=== PATIENT | female | born 1950 | race Caucasian/White ===

== ENCOUNTER 2017-08-26 10:34 | Emergency (ER) | payer OTHER ==
[2017-08-26] MEDS ORDERED: NS 0.9% 1000 ML* 1,000 ML IV ONE (10:59)
[2017-08-26] MEDS ORDERED: Morphine VIAL* 4 MG/ML VIAL (1 ml vial) IV ONE (11:01)
[2017-08-26] MEDS ORDERED: Metoclopramide IV* 5 MG/ML 2 ML VIAL IV ONE (11:02)
[2017-08-26 11:17] LABS: ABS Basophils 0.1 10^3/ul (0-0.2); ABS Eosinophils 0.1 10^3/ul (0-0.6); ABS Lymphocytes 1.7 10^3/ul (1.0-4.8); ABS Monocytes 0.6 10^3/ul (0-0.8); ABS Neutrophils 4.8 10^3/ul (1.5-7.7); ABS Nucleated RBC 0 10^3/ul; Eosinophil % 1.2 % (0-6); Hematocrit 41 % (35-47); Lymphocyte % 23.1 % (25-47); Mean Corpuscular HGB Conc 34 g/dl (31-36); Mean Corpuscular Hemoglobin 31 pg (27-31); Mean Corpuscular Volume 91 fL (80-97); Mean Platelet Volume 7.4 um3 (7.4-10.4); Nucleated Red Blood Cells % 0.1; Platelet Count 258 10^3/ul (150-450); Red Blood Count 4.48 10^6/ul (4.00-5.40); Red Cell Distribution Width 13 % (10.5-15); White Blood Count 7.2 10^3/ul (3.5-10.8)
[2017-08-26 11:39] LABS: EGFR Non-African American 64.1 (>60)
[2017-08-26] MEDS ORDERED: Iohexol 300* (CONTRAST) 10 ML SDV IV ONE (11:50)
[2017-08-26 12:17] LABS: Urine Appearance Clear; Urine Blood 1+ (Negative); Urine Color Yellow; Urine Ketones Negative (Negative); Urine Protein Negative (Negative); Urine Urobilinogen Negative (Negative)
--- NOTE | 2017-08-26 14:01 | RAD ---
INDICATION: Right lower quadrant pain COMPARISON: None TECHNIQUE: Axial source images were obtained from the hemidiaphragms to the symphysis pubis following administration of oral and intravenous contrast. 85 mL Omnipaque 300 was utilized. Coronal and sagittal reconstructed images were acquired. Lung bases: The lung bases are clear. Liver: The liver is normal in size. There are no masses. There is no ductal dilatation. Gallbladder: There are no calcified gallstones. There is no evidence of wall thickening or pericholecystic fluid. Spleen: The spleen is normal in size. There are no masses. Pancreas: There is no focal pancreatic mass or ductal dilatation. Adrenal glands: There is no evidence of adrenal mass. Kidneys: The kidneys are normal in size and position. There are prompt nephrograms and there is prompt excretion bilaterally. There is an 8 mm cyst in the mid-upper pole the right kidney. There is a 4 mm fat density lesion in the inferior right renal pole which may resent tiny angiomyolipoma There is no evidence of nephrolithiasis. Adenopathy: There is no evidence of adenopathy by size criteria. Fluid collections: There are no free or localized fluid collections. Vessels:There are no significant atherosclerotic changes involving the aorta. There is no focal aneurysm. The iliac vessels are normal in caliber. The IVC appears normal. GI tract: There are no acute CT bowel findings. There is no obstruction. The stomach and small bowel appear normal. There is stool in the right colon. The GI tract is otherwise unremarkable. The cecum, ileocecal valve, and terminal ileum appear normal. The appendix is visualized and appear normal. Pelvic organs: There is a probable small uterine fibroid measuring approximately 9 mm. There is no adnexal mass. Bladder: There are no bladder masses. Abdominal and pelvic soft tissues: The extraperitoneal abdominal and pelvic soft tissues appear normal.. Osseous structures: There are no acute osseous findings. Other: None IMPRESSION: NO ACUTE CT FINDINGS. NO WORRISOME MASS OR INFLAMMATORY CHANGES. STOOL RIGHT COLON. NORMAL APPENDIX.
[2017-08-26] MEDS ORDERED: Magnesium CITRATE* 300 ML BTL PO ONE (14:21)
[2017-08-26] MEDS ORDERED: Ketorolac INJ* 30 MG/ML 1 ML VIAL IV PUSH ONE (14:30)
[2017-08-26 15:14] VITALS: BP 106/79
--- NOTE | 2017-08-26 19:41 | ED ---
Megan Messina Jade, scribed for Ayana Jensen MD on 08/26/17 at 1106 . Abdominal Pain/Female - HPI Summary HPI Summary: Pt is a 66 y/o female who presents to the ED c/o abdominal pain. She states the pain started 2 days ago but worsened last night, and is located over her lower abdomen. Pain is rated a 6/10 in severity, and is made worse by touch or lying on her left side. Pt is otherwise healthy. She also c/o decreased appetite, more irregular and less loose BMs, and being aware of her urination. Pt denies any fever, chills, dysuria, or N/V/D. No PMHx HLD, DM, HTN, or appendicitis. She denies any PSHx abdominal surgeries. She has a FHx of colon cancer, and gets regular colonoscopies. Pt denies any allergies, smoking, or drug use. She occasionally drinks alcohol. - History of Current Complaint Chief Complaint: EDAbdPain Stated Complaint: ABD PAIN Time Seen by Provider: 08/26/17 10:45 Hx Obtained From: Patient Onset/Duration: Gradual Onset, Lasting Days - 2, Still Present Timing: Constant Severity Currently: Moderate Pain Intensity: 6 Pain Scale Used: 0-10 Numeric Location: Discrete At: RLQ, Discrete At: LLQ Radiates: No Aggravating Factor(s): Other: - Touch, laying on left side Alleviating Factor(s): Nothing Associated Signs and Symptoms: Positive: Decreased Appetite. Negative: Fever, Urinary Symptoms, Nausea, Vomiting, Diarrhea Allergies/Adverse Reactions: Allergies Allergy/AdvReac Type Severity Reaction Status Date / Time No Known Allergies Allergy Verified 08/26/17 10:42 PMH/Surg Hx/FS Hx/Imm Hx Endocrine/Hematology History: Denies: Hx Diabetes Cardiovascular History: Denies: Hx Hypercholesterolemia, Hx Hypertension GI History: Denies: Other GI Disorders - Appendicitis - Cancer History Hx Chemotherapy: No Hx Radiation Therapy: No Infectious Disease History: No Infectious Disease History: Denies: Traveled Outside the [place] in Last 30 Days - Family History Known Family History: Positive: Other - Colon cancer - Social History Alcohol Use: Occasionally Hx Substance Use: No Substance Use Type: Reports: None Hx Tobacco Use: No Smoking Status (MU): Never Smoked Tobacco Review of Systems Negative: Fever, Chills Positive: Abdominal Pain - Lower, Other - "irregular" BM, decreased appetite. Negative: Vomiting, Diarrhea, Nausea Negative: dysuria All Other Systems Reviewed And Are Negative: Yes Physical Exam - Summary Physical Exam Summary: GENERAL: Patient is a well-developed and nourished F who is lying comfortable in the stretcher. Patient is not in any acute respiratory distress. HEAD AND FACE: Normocephalic. EYES: PERRLA, EOMI x 2. EARS: Hearing grossly intact. MOUTH: Oropharynx within normal limits. NECK: Supple, trachea is midline, no adenopathy, no JVD, no carotid bruit. CHEST: Symmetric, no tenderness at palpation LUNGS: Clear to auscultation bilaterally. No wheezing or crackles. CVS: Regular rate and rhythm, S1 and S2 present, no murmurs or gallops appreciated. ABDOMEN: Soft. Bowel sounds are normal. No abdominal abnormal pulsations. Tender to palpation in RLQ. Rovsings sign positive. EXTREMITIES: Full ROM in all major joints, no edema, no cyanosis or clubbing. NEURO: Alert and oriented x 3. No acute neurological deficits. Speech is normal and follows commands. SKIN: Dry and warm. No rash identified. Triage Information Reviewed: Yes Vital Signs On Initial Exam: Initial Vitals Temp Pulse Resp BP Pulse Ox 96.8 F 82 16 180/94 95 08/26/17 10:38 08/26/17 10:38 08/26/17 10:38 08/26/17 10:38 08/26/17 10:38 Vital Signs Reviewed: Yes Diagnostics - Vital Signs Vital Signs Temp Pulse Resp BP Pulse Ox 08/26/17 10:38 96.8 F 82 16 180/94 95 - Laboratory Result Diagrams: 08/26/17 11:06 08/26/17 11:06 Lab Statement: Any lab studies that have been ordered have been reviewed, and results considered in the medical decision making process. - CT Abd/Pel CT CT Interpretation: No Acute Changes - 11:00: NO ACUTE CT FINDINGS. NO WORRISOME MASS OR INFLAMMATORY CHANGES. STOOL RIGHT COLON. NORMAL APPENDIX. ED physician reviewed radiology report. CT Interpretation Completed By: Radiologist Abdominal Pain Fem Course/Dx - Course Course Of Treatment: Pt is a 66 y/o female who presents to the ED c/o abdominal pain. She states the pain started 2 days ago but worsened last night, and is located over her lower abdomen. Pain is rated a 6/10 in severity, and is made worse by touch or lying on her left side. Pt is otherwise healthy. She also c/o decreased appetite, more irregular and less loose BMs, and being aware of her urination. Pt denies any fever, chills, dysuria, or N/V/D. No PMHx HLD, DM, HTN , or appendicitis. She denies any PSHx abdominal surgeries. She has a FHx of colon cancer, and gets regular colonoscopies. Pt denies any allergies, smoking, or drug use. She occasionally drinks alcohol. An abdomen/pelvis CT revealed NO ACUTE CT FINDINGS, NO WORRISOME MASS OR INFLAMMATORY CHANGES, STOOL RIGHT COLON , AND NORMAL APPENDIX. UA does not show distinct evidence of a UTI. Discussed results with pt in great detail. Final dx is abdominal pain. Pt reports feeling better, and is hemodynamically stable. Safe for discharge with strict return precautions. Will follow up with PCP. - Diagnoses Provider Diagnoses: Abdominal pain Discharge - Sign-Out/Discharge Documenting (check all that apply): Discharge/Admit/Transfer - Discharge - Discharge Plan Condition: Stable Disposition: HOME Patient Education Materials: Abdominal Pain (ED) Referrals: Franchesca Fitzgerald MD [Primary Care Provider] - 3 Days Additional Instructions: RETURN TO THE ED WITH NEW OR WORSENING SYMPTOMS. The documentation as recorded by the Megan wood Jade accurately reflects the service I personally performed and the decisions made by , Ayana Jensen MD.
== END 2017-08-26 15:15 | disposition home or self-care (01) ==
LOC: ED 10:34
DX: R10.30 Lower abdominal pain, unspecified (principal); I10 Essential (primary) hypertension; E11.9 Type 2 diabetes mellitus without complications; E78.5 Hyperlipidemia, unspecified; Z80.0 Family history of malignant neoplasm of digestive organs
CPT/HCPCS: 36415; 74177; 80053; 81003; 81015; 82150; 83605; 83690; 85025; 86140; 87086; 96374; 96375; 99283; A9270-GY; J1885; J2270; J2765; Q9967

== ENCOUNTER 2018-07-11 14:44 | Emergency (ER) | payer OTHER ==
[2018-07-11 14:58] VITALS: BP 140/79
--- NOTE | 2018-07-11 15:00 | UC ---
Lower Extremity/Ankle HPI - HPI Summary HPI Summary: 67 yo female presents with RIGHT ankle swelling. She tells me that she was hiking 1 week ago and inverted her right ankle. Had mild pain, but continued hiking. She developed some swelling soon after. Took ibuprofen, elevated, and iced the area and swelling reduced. It has been 1 week and she is still having some swelling to lateral right ankle and feels a little "wobbly" when walking. Denies numbness or tingling. - History of Current Complaint Chief Complaint: UCLowerExtremity Stated Complaint: R ANKLE INJURY Time Seen by Provider: 07/11/18 15:00 Hx Obtained From: Patient Onset/Duration: Sudden Onset Severity Initially: Mild Severity Currently: Mild Pain Intensity: 1 Pain Scale Used: 0-10 Numeric Able to Bear Weight: Yes - Allergies/Home Medications Allergies/Adverse Reactions: Allergies Allergy/AdvReac Type Severity Reaction Status Date / Time bee venom protein (honey bee) Allergy Swelling Verified 07/11/18 14:59 Of Face,Lips,& Throat PMH/Surg Hx/FS Hx/Imm Hx - Additional Past Medical History Additional PMH: None - Surgical History Surgical History: Yes Surgery Procedure, Year, and Place: BREAST ERIKA. BENIGN MASS REMOVED. - Family History Known Family History: Positive: Other - Colon cancer - Social History Lives: With Family Alcohol Use: Occasionally Substance Use Type: None Smoking Status (MU): Never Smoked Tobacco Review of Systems All Other Systems Reviewed And Are Negative: Yes Constitutional: Positive: Negative Skin: Positive: Negative Respiratory: Positive: Negative Cardiovascular: Positive: Negative Neurovascular: Positive: Negative Musculoskeletal: Positive: Other: - Right ankle pain Neurological: Positive: Negative Psychological: Positive: Negative Physical Exam - Summary Physical Exam Summary: GENERAL: NAD. WDWN. No pain distress. SKIN: No rashes, sores, lesions, or open wounds. CHEST: No accessory muscle use. Breathing comfortably and in no distress. CV: Pulses intact PT and DP. Cap refill <2seconds MSK: RIGHT ANKLE: Mild edema at lateral malleolus. TTP ATFL. FROM. Strength 5/ 5. Negative talar tilt. No increased laxity. NEURO: Alert. Sensations intact and symmetric B/L LEs PSYCH: Age appropriate behavior. Triage Information Reviewed: Yes Vital Signs: Initial Vital Signs Temp 98.7 F 07/11/18 14:52 Pulse 66 07/11/18 14:52 Resp 16 07/11/18 14:52 BP 140/79 07/11/18 14:52 Pulse Ox 98 07/11/18 14:52 Vital Signs Reviewed: Yes Lower Extremity Course/Dx - Course Course Of Treatment: XR: IMPRESSION: SOFT TISSUE SWELLING, NO FRACTURE IS SEEN. Suspect ankle sprain. LANA wrapped in clinic. Advised to continue RICE and ibuprofen. - Differential Dx/Diagnosis Provider Diagnosis: Ankle sprain Discharge - Sign-Out/Discharge Documenting (check all that apply): Patient Departure All imaging exams completed and their final reports reviewed: Yes - Discharge Plan Condition: Stable Disposition: HOME Patient Education Materials: Ankle Sprain (ED) Referrals: Franchesca Fitzgerald MD [Primary Care Provider] - Additional Instructions: If you develop a fever, shortness of breath, chest pain, new or worsening symptoms - please call your PCP or go to the ED immediately. Your blood pressure was slightly elevated at todays visit. Please see your primary provider within 4 weeks for recheck and re-evaluation. Your ankle X-Ray was normal today and did not show any fracture. 1) I suspect your ankle has some swelling due to a sprain of the ligament -- this should improve with continued rest, ice, and time. 2) May take ibuprofen 400mg every 6-8hours as needed for pain or swelling. - Billing Disposition and Condition Condition: STABLE Disposition: Home - Attestation Statements Provider Attestation: This patient was not seen by me. I was available for consult.
== END 2018-07-11 15:46 | disposition home or self-care (01) ==
LOC: UCEAST 14:44
DX: S93.401A Sprain of unspecified ligament of right ankle, initial encounter (principal); X50.9XXA Other and unspecified overexertion or strenuous movements or postures, initial encounter; Z91.030 Bee allergy status; Z80.0 Family history of malignant neoplasm of digestive organs
CPT/HCPCS: 99212; G0463